=== PATIENT | male | born 1945 | race Caucasian/White ===

== ENCOUNTER 2017-01-25 10:32 | Day surgery (SDC) | payer MEDICARE, OTHER ==
--- NOTE | ~2017-01-25 | EGD ---
EGD REPORT [facility] [address] [id number] NAME: THO AVINA : [birth year] STATUS : REG [facility]#: [id number] AGE: 71 ADM/REG DATE : 01/25/17 MR#: [id number] REPORT SERV DATE: 01/25/17 DICTATED BY: DATE: REPORT STATUS : Draft TRANSCRIBED BY: [employer] DATE: 01/25/17 [facility] Patient Name: Tho Avina Date of : 1945 Attending MD: GISSELLE BOOKER MD Procedure Date No Time: 01/25/2017 Procedure: Upper GI endoscopy Indications: Iron deficiency anemia, Follow-up of acute peptic ulcer Referring MD: KEY COLUNGA Medicines: Monitored Anesthesia Care Complications: No immediate complications. Procedure: Pre-Anesthesia Assessment: - ASA Grade Assessment: III - A patient with severe systemic disease. After obtaining informed consent, the endoscope was passed under direct vision. Throughout the procedure, the patient's blood pressure, pulse, and oxygen saturations were monitored continuously. The GIF [id number] was introduced through the mouth, and advanced to the jejunum. The upper GI endoscopy was accomplished without difficulty. The patient tolerated the procedure well. Findings: The examined esophagus was normal. There is no endoscopic evidence of Vega's esophagus, areas of erosion, ulcerations or varices in the entire esophagus. A large amount of food (residue) was found in the gastric body. Two superficial gastric ulcers were found at the anastomosis. The largest lesion was 4 mm in largest dimension. The examined jejunum was normal. Impression: - Normal esophagus. - A large amount of food (residue) in the stomach. - Gastric ulcers. - Normal examined jejunum. Recommendation: - Patient has a contact number available for emergencies. The signs and symptoms of potential delayed complications were discussed with the patient. Return to normal activities tomorrow. Written discharge instructions were provided to the patient. - Regular diet. - Discharge patient to home. - IV Reglan 10 mg then ingest capsule in 30 minutes. EGD REPORT [address] [id number] NAME: THO AVINA : [birth year] STATUS : [place] [facility] [place]#: [id number] AGE: 71 ADM/REG DATE : 01/25/17 MR#: [id number] REPORT SERV DATE: 01/25/17 DICTATED BY: DATE: REPORT STATUS : Draft TRANSCRIBED BY: [employer] DATE: 01/25/17 - No aspirin, ibuprofen, naproxen, or other non-steroidal anti-inflammatory drugs. - Carafate as slurry 4 times daily. - Repeat the upper endoscopy in 12 weeks for surveillance. Procedure Code(s): --- Professional --- 62412, Esophagogastroduodenoscopy, flexible, transoral; diagnostic, including collection of specimen(s) by brushing or washing, when performed (separate procedure) Diagnosis Code(s): --- Professional --- K25.9, Gastric ulcer, unspecified as acute or chronic, without hemorrhage or perforation D50.9, Iron deficiency anemia, unspecified K27.3, Acute peptic ulcer, site unspecified, without hemorrhage or perforation CPT copyright 2013 [employer]. All rights reserved. The codes documented in this report are preliminary and upon cager operator review may be revised to meet current compliance requirements. GISSELLE BOOKER MD 01/25/2017 12:20 PM This report has been signed electronically. Number of Addenda: 0 Note Initiated On: 01/25/2017 11:47 AM Scope Withdrawal Time 0 hours 0 minutes 0 seconds [id number] [id number]
[~2017-01-25 10:32] MED LIST: ASAB PO; BENICAR HCT1 TA1 PO; BENICAR HCT1 TAB PO; COREG3 PO; CPAP; CYTOTEC2 PO; ELIQUIS 5 MG TAB5 MG PO; FERRETTS325 MG PO; FERROUS GLUC324 MG PO; FERROUS SULF325 M1 PO; FESO4 PO; FISH OIL1200 MG PO; FISH-EPA1000 MG PO; FLOMAX4 PO; FLONASE NAS; IRON325 MG PO; ISORDIL10 PO; ISORDTAB5 PO; JANTOVEN4 MG PO; KLONO2 PO; KLONOPIN WAF2 MG PO; LIPITOR20 PO; LIPITOR40 PO; LOP50 PO; LOPID6 PO; LOVAZA1 GM PO; METOCLOPRAMIDE PO; NEUR600 PO; NIASPAN PO; NIASPAN500 PO; PCET PO; PRAVACHOL80 MG PO; PRILO PO; PRILOSEC40 MG PO; PROAIR HFA INH; PROVHFA INH; REG5 PO; SPIRIVA INH; SPIRIVA RESPIMAT INH; SUCR PO; TOPXL25 PO; TOPXL50 PO; VENTOLIN HFA INH; VIBRATAB100 MG PO; VITAMIN B-121000 MC1 SL; Z100 PO; ZITH250 PO; ZOFRAN4 PO
[2017-05-01] MEDS ORDERED: REG5 PO (11:07)
[2017-05-01] MEDS ORDERED: FLONASE NAS (11:09)
[2017-05-01] MEDS ORDERED: L40 PO (11:12)
[2017-05-01] MEDS ORDERED: KLOR-CON M1010 MEQ PO (11:13)
[2017-05-01] MEDS ORDERED: VITAMIN B-121000 MC1 SL (11:14)
[2017-05-01] MEDS ORDERED: SUCR PO (11:14)
== END 2017-01-25 23:59 | disposition home or self-care (01) ==
LOC: DMU 10:32
PROVIDERS: Internal Medicine Gastroenterology
PROC: 0DJ08ZZ Inspection of Upper Intestinal Tract, Via Natural or Artificial Opening Endoscopic (ICD-10-PCS; principal; 2017-01-25 12:30)
DX: K25.9 Gastric ulcer, unspecified as acute or chronic, without hemorrhage or perforation (principal); D50.9 Iron deficiency anemia, unspecified; E78.5 Hyperlipidemia, unspecified; I48.91 Unspecified atrial fibrillation; G47.33 Obstructive sleep apnea (adult) (pediatric); M10.9 Gout, unspecified; R13.10 Dysphagia, unspecified; K21.9 Gastro-esophageal reflux disease without esophagitis; I25.10 Atherosclerotic heart disease of native coronary artery without angina pectoris; K59.4 Anal spasm; M19.90 Unspecified osteoarthritis, unspecified site; H91.90 Unspecified hearing loss, unspecified ear; K64.9 Unspecified hemorrhoids; N40.0 Benign prostatic hyperplasia without lower urinary tract symptoms; E78.00 Pure hypercholesterolemia, unspecified; Z87.828 Personal history of other (healed) physical injury and trauma; Z95.5 Presence of coronary angioplasty implant and graft; Z98.890 Other specified postprocedural states; Z95.0 Presence of cardiac pacemaker; Z90.49 Acquired absence of other specified parts of digestive tract; Z88.1 Allergy status to other antibiotic agents; Z79.899 Other long term (current) drug therapy
CPT/HCPCS: J2765; J2930